=== PATIENT | female | born 1970 | race American Indian/Alaskan Native ===

== ENCOUNTER 2021-02-07 00:13 | Emergency (ER) | payer SELFPAY | END 2021-02-07 03:09 | disposition left against medical advice (07) | LOC: ED 00:13 | DX: E11.621 Type 2 diabetes mellitus with foot ulcer (principal); Z53.21 Procedure and treatment not carried out due to patient leaving prior to being seen by health care provider ==

== ENCOUNTER 2021-09-04 17:05 | Emergency (ER) | payer SELFPAY | END 2021-09-04 19:00 | disposition left against medical advice (07) | LOC: ED 17:05 | DX: M25.512 Pain in left shoulder (principal); Z53.21 Procedure and treatment not carried out due to patient leaving prior to being seen by health care provider ==